=== PATIENT | female | born 1935 | race Caucasian/White ===

== ENCOUNTER 2016-12-14 00:03 | Inpatient (IN) | payer SELFPAY ==
[~2016-12-14] VITALS: Ht 152.4 cm; Wt 41.7 kg
[2016-12-14] VITALS (7 sets, daily range): BP systolic 108–178; BP diastolic 39–72
[2016-12-14] MEDS ORDERED: ASPIRIN 81MG TABLET PO STA (00:43)
[2016-12-14 01:06] LABS: BASOPHILS % 0.5 % (0.0-2.0); EOSINOPHILS % 2.2 % (0.0-5.0); HEMATOCRIT. 39.3 % (36.0-48.0); HEMOGLOBIN. 13.1 g/dL (12.0-16.0); LYMPHOCYTES % 36.2 % (20.0-50.0); MEAN CORPUSCULAR HEMOGLOBIN 30.1 pg (28.0-32.0); MEAN PLATELET VOLUME 7.2 fl (7.4-10.4); MONOCYTES % 10.6 % (2.0-8.0); NEUTROPHILS % 50.5 % (40.0-76.0); PLATELET 197 x1000/uL (130-400); RED BLOOD CELL COUNT 4.36 mill/uL (4.2-5.4); RED CELL DISTRIBUTION WIDTH 13.4 % (11.6-14.6)
[2016-12-14 01:16] LABS: CARBON DIOXIDE 30 mEq/L (21-32); CHLORIDE 104 mEq/L (98-107); TROPONIN I < 0.02 ng/mL (0.00-0.04)
[2016-12-14] MEDS ORDERED: ACETAMINOPHEN 325MG TABLET PO PRN ×3 (02:15→05:00)
[2016-12-14] MEDS ORDERED: CLONIDINE 0.1MG TABLET PO PRN (05:00)
[2016-12-14] MEDS ORDERED: IPRATROPIUM/ALBUTEROL 0.5-3(2.5)MG/3ML NEB INH PRN (05:00)
[2016-12-14] MEDS ORDERED: ONDANSETRON HCL 4MG/2ML VIAL IV PRN (05:00)
[2016-12-14] MEDS ORDERED: MAGNESIUM/ALUMINUM HYDROXIDE/SIMETHICONE 30ML UDC PO PRN (05:00)
[2016-12-14] MEDS ORDERED: DIPHENHYDRAMINE 50MG/ML VIAL IV PRN (05:00)
[2016-12-14] MEDS ORDERED: GUAIFENESIN 200MG/10ML SUGAR FREE UDC PO PRN (05:00)
[2016-12-14] MEDS: SODIUM CHLORIDE 0.9% INJ 3ML FLUSH IVF SCH ×3 (05:15→21:45)
[2016-12-14 08:06] LABS: HDL CHOLESTEROL 41 mg/dL (40-59); LDL CHOLESTEROL 119 mg/dL (5-100); TROPONIN I < 0.02 ng/mL (0.00-0.04)
[2016-12-14] MEDS: ASPIRIN 81MG TABLET PO SCH (08:18)
[2016-12-14] MEDS ORDERED: ASPIRIN 81MG EC TABLET PO SCH (09:00)
[2016-12-14] MEDS ORDERED: REGADENOSON 0.4 MG/5 ML IV ONE (10:45)
[2016-12-14] MEDS ORDERED: LOSA50TA20 PO (17:07)
[2016-12-14] MEDS: AMLODIPINE 2.5MG TABLET PO SCH (21:44)
[2016-12-15] VITALS: BP 120/40
[2016-12-15 04:00] VITALS: BP 122/44
[2016-12-15] MEDS: SODIUM CHLORIDE 0.9% INJ 3ML FLUSH IVF SCH (05:23)
[2016-12-15 06:41] LABS: BASOPHILS % 0.5 % (0.0-2.0); EOSINOPHILS % 3.5 % (0.0-5.0); HEMATOCRIT. 38.2 % (36.0-48.0); HEMOGLOBIN. 12.9 g/dL (12.0-16.0); LYMPHOCYTES % 29.4 % (20.0-50.0); MEAN CORPUSCULAR HEMOGLOBIN 30.6 pg (28.0-32.0); MEAN CORPUSCULAR VOLUME 90.8 fL (81.0-99.0); MEAN PLATELET VOLUME 7.2 fl (7.4-10.4); NEUTROPHILS % 58.6 % (40.0-76.0); PLATELET 190 x1000/uL (130-400); RED BLOOD CELL COUNT 4.21 mill/uL (4.2-5.4); RED CELL DISTRIBUTION WIDTH 13.4 % (11.6-14.6)
[2016-12-15 07:04] LABS: CARBON DIOXIDE 25 mEq/L (21-32); CHLORIDE 108 mEq/L (98-107); CREATINE KINASE 45 IU/L (26-192); CREATINE KINASE MB FRACTION 0.9 ng/mL (0.5-3.6); TROPONIN I < 0.02 ng/mL (0.00-0.04)
[2016-12-15 07:07] LABS: HDL CHOLESTEROL 39 mg/dL (40-59); LDL CHOLESTEROL 120 mg/dL (5-100)
[2016-12-15 08:00] VITALS: BP 122/47
[2016-12-15] MEDS ORDERED: REGADENOSON 0.4 MG/5 ML IV ONE (08:25)
[2016-12-15] MEDS: AMLODIPINE 2.5MG TABLET PO SCH (09:00)
[2016-12-15] MEDS: ASPIRIN 81MG TABLET PO SCH (09:19)
[2016-12-15 12:00] VITALS: BP 117/49
[2016-12-15 12:37] VITALS: BP 117/49
== END 2016-12-15 13:30 | disposition home or self-care (01) | DRG 203 ==
LOC: ER 00:03 → 7WST 02:08 → ENRESERV 03:04
PROVIDERS: ADMIT Internal Medicine; ATTEND Internal Medicine
DX: R07.89 Other chest pain (principal); E44.1 Mild protein-calorie malnutrition; I11.9 Hypertensive heart disease without heart failure; Z68.1 Body mass index [BMI] 19.9 or less, adult; Z79.82 Long term (current) use of aspirin; Z82.49 Family history of ischemic heart disease and other diseases of the circulatory system; Z90.49 Acquired absence of other specified parts of digestive tract
CPT/HCPCS: 36415; 71010; 78452; 80053; 80061; 82550; 82553; 83735; 83880; 84484; 85025; 85379; 93005; 93017; 93306; 93970; 99285; A9500; J2785